=== PATIENT | female | born 1990 | race Caucasian/White ===

== ENCOUNTER → 2019-02-27 | Outpatient (CLI) | payer OTHER | LOC: LABWHC1 08:39 | PROVIDERS: ATTEND Obstetrics & Gynecology | DX: N92.6 Irregular menstruation, unspecified (principal) | CPT/HCPCS: 36415; 84702 ==

== ENCOUNTER → 2019-06-24 | Outpatient (CLI) | payer OTHER ==
[2019-06-24 15:32] LABS: HCT 36.1 % (34.0-46.0); HGB 12.4 gm/dL (11.4-16.0); MCH 28.3 pg (25.0-35.0); MCHC 34.3 g/dL (31.0-37.0); MCV 82.4 fL (80.0-100.0); Mean Platelet Volume 6.3; Platelet Count 305 k/uL (150-450); RBC 4.38 m/uL (3.80-5.40); RDW 13.7 % (11.5-15.5)
[2019-06-25 01:41] LABS: African American GFR (CKD) 137.6 (60.0-200.0)
[2019-06-25 02:20] LABS: Hepatitis B Surface Antigen Non-Reactive (Non-Reactive)
== END | disposition home or self-care (01) ==
LOC: LABWHC1 14:52
PROVIDERS: ATTEND Obstetrics & Gynecology
DX: Z34.81 Encounter for supervision of other normal pregnancy, first trimester (principal)
CPT/HCPCS: 36415; 82565; 82947; 85027; 86762; 86780; 86850; 86870; 86880; 86886; 86900; 86901; 87340

== ENCOUNTER → 2019-07-03 | Outpatient (CLI) | payer OTHER ==
--- NOTE | 2019-07-03 16:52 | US ---
EXAMINATION TYPE: Transabdominal DATE OF EXAM: 07/03/2019 4:32 PM COMPARISON: NONE CLINICAL HISTORY: Z36 CONFIRM DATES. Confirm Dates EXAM PERFORMED: Transabdominal (TA) EXAM MEASUREMENTS: GESTATIONAL AGE / DATING Physician Established: Not yet established Dates by LMP: (10 weeks/4 days) EDC: 01/25/2020 Dates by First Scan: No prior Dates by Current Scan for: (9 weeks/1 days) EDC: 02/04/2020 MATERNAL ANATOMY Uterus: 11.5 x 6.9 x 8.0 cm Right Ovary: 3.0 x 1.7 x 1.8 cm Left Ovary: 2.6 x 1.6 x 2.4 cm Post CDS / Adnexa: wnl Presence of free fluid: No Presence of subchorionic bleed: Yes, sup to gestational sac= 1.8 x 1.2 x 1.8 cm GESTATION / SURVEY CRL: 2.4 cm (9 weeks/1 days) MSD: wnl Yolk Sac (normal less than 6mm): 4mm Heart Rate: 174 bpm Rhythm: Normal IUP: Viable IUP Date of LMP: 04/20/2019 Single live intrauterine gestation is seen as gestational sac, yolk sac, pole are present. No f ree fluid in pelvic cul-de-sac. Superior to gestational sac there is is small fluid collection measur ing 1.8 cm long axis could reflect implantation bleed. Both ovaries are seen. No concerning extra ovarian adnexal mass. IMPRESSION: Single live intrauterine gestation is confirmed, mean crown-rump length is 2.4 cm corresp onding to 9 week 1 day old fetus.
== END | disposition home or self-care (01) ==
LOC: RADUSWWP 16:18
PROVIDERS: ATTEND Obstetrics & Gynecology
DX: Z36.89 Encounter for other specified antenatal screening (principal); Z3A.09 9 weeks gestation of pregnancy
CPT/HCPCS: 76801

== ENCOUNTER 2020-01-27 12:37 | Outpatient (CLI) | payer OTHER ==
[2020-01-27 14:00] LABS: Appearance,Urine Clear (Clear); Bacteria,Urine Rare /hpf; Bilirubin,Urine Negative (Negative); Blood,Urine Negative (Negative); Color,Urine Light Yellow; Glucose,Urine (UA) Negative (Negative); Ketones,Urine Negative (Negative); Leukocyte Esterase,Urine Moderate (Negative); Mucus,Urine Rare /hpf; Nitrite,Urine Negative (Negative); PH, Urine 7.5 (5.0-8.0); Protein,Urine Negative (Negative); RBC,Urine 1 /hpf (0-5); Specific Gravity,Urine 1.009 (1.001-1.035); Squamous Epithelial Cell,Urine 2 /hpf (0-4); Urobilinogen,Urine <2.0 mg/dL (<2.0); WBC,Urine 8 /hpf (0-5)
[2020-01-27 14:06] LABS: Basophils % (A) 0 %; Eosinophils # (A) 0.1 k/uL (0-0.7); Eosinophils % (A) 1 %; HCT 33.3 % (34.0-46.0); HGB 10.8 gm/dL (11.4-16.0); Hypochromasia Slight; Lymphocytes # (A) 1.9 k/uL (1.0-4.8); Lymphocytes % (A) 21 %; MCHC 32.4 g/dL (31.0-37.0); MCV 86.4 fL (80.0-100.0); Mean Platelet Volume 7.3; Monocytes # (A) 0.3 k/uL (0-1.0); Monocytes % (A) 4 %; Neutrophils # (A) 6.5 k/uL (1.3-7.7); Neutrophils % (A) 73 %; Platelet Count 340 k/uL (150-450); RBC 3.85 m/uL (3.80-5.40); RDW 14.8 % (11.5-15.5); WBC 8.9 k/uL (3.8-10.6)
[2020-01-27 14:08] LABS: ALT 8 U/L (4-34); AST 17 U/L (14-36); African American GFR (CKD) >90 (>60 ml/min/1.73 sqM); Blood Urea Nitrogen 7 mg/dL (7-17); LDH 343 U/L (313-618); Non-African American GFR(CKD) >90 (>60 ml/min/1.73 sqM); Uric Acid 4.3 mg/dL (3.7-7.4)
[2020-01-27 14:12] LABS: Protein/Creatinine Ratio,Urine 0.285
[2020-01-27 15:02] VITALS: BP 142/88; PULSE 87; RESP 16
--- NOTE | 2020-01-30 09:05 | P.MSEPDOC ---
Presenting Problems - Arrival Data Date of Arrival on Unit: 01/27/20 Time of Arrival on Unit: 12:37 Mode of Transport: Ambulatory - Complaint OB-Reason for Admission/Chief Complaint: PIH Comment: pt was sent over by Dr. Gibson for high BP and PIH work up Medical History - Information : 3 Para: 2 Term: 2 : 0 Abortions: Spontaneous or Elective: 0 Number of Living Children: 2 - Gestational Age Gestational Age by NITESH (wks/days): 38 Weeks and 6 Days Review of Systems - Review of Systems Constitutional: No problems Breast: No problems ENT: No problems Cardiovascular: No problems Respiratory: No problems Gastrointestinal: No problems Genitourinary: No problems Musculoskeletal: No problems Neurological: No problems Skin: No problems Vital Signs - Pulse Right Brachial Pulse Rate: 87 Pulse Assessment Method: Automatic Cuff - Respirations Respiratory Rate: 16 Oxygen Delivery Method: Room Air - Blood Pressure Right Arm Blood Pressure: 142/88 Blood Pressure Mean: 106 Blood Pressure Source: Automatic Cuff Medical Screen Scoring (Pre) - Cervical Exam Dilation: Exam Deferred Effacement: Exam Deferred - Uterine Contractions Frequency: N/A Duration: N/A Intensity: N/A - Maternal Vital Signs Maternal Temperature: N/A Maternal Blood Pressure: Systolic >139 = 2 Signs of Preeclampsia: Headache = 1 Maternal Respirations: N/A - Maternal Trauma Maternal Trauma: N/A - Assessment - Baby A Baseline FHR: 130 Heart Rate - NICHD Category: Category I (Normal) = 0 NST: Reactive Position: N/A Station: N/A - Total Score - Baby A Total Score - Baby A: 3 - Total Score - Baby B Total Score - Baby B: 3 - Total Score - Baby C Total Score - Baby C: 3 - Level of Risk - Baby A Level of Risk - Baby A: Low (0-5) - Level of Risk - Baby B Level of Risk - Baby B: Low (0-5) - Level of Risk - Baby C Level of Risk - Baby C: Low (0-5) Physician Notification (Pre) - Physician Notified Physician Notified Date: 01/27/20 Physician Notified Time: 14:34 New Order Received: Yes - Notification Comment Comment: pt discharged home and to return tomorrow for IOL Disposition - Disposition OB Disposition: Discharge to home Discharge Date: 01/27/20 Discharge Time: 14:38 I agree with the RN Medical Screening Exam: Yes Risk & Benefit of care provided described in d/c instruction: Yes Diagnosis: GESTATIONAL HTN W/O SIGNIFICANT PROTEINURIA, THIRD TRIMESTER
== END 2020-01-27 14:38 | disposition home or self-care (01) ==
LOC: FBPOP 12:37
PROVIDERS: ATTEND Obstetrics & Gynecology
DX: O13.3 Gestational [pregnancy-induced] hypertension without significant proteinuria, third trimester (principal); Z3A.38 38 weeks gestation of pregnancy
CPT/HCPCS: 59025; 81001; 82565; 82570; 83615; 84156; 84450; 84460; 84520; 84550; 85025; 99215

== ENCOUNTER 2020-01-28 06:15 | Inpatient (IN) | payer OTHER ==
[2020-01-28] MEDS ORDERED: OXYTOCIN 30 UNITS/500 ML NS 30 UNIT in SALINE 1 500ML.BAG IV SCH (06:30)
[2020-01-28] MEDS ORDERED: LIDOCAINE 0.5% (PF) 5 MG/ML (50 ML SDV) SQ PRN (06:30)
[2020-01-28] MEDS ORDERED: CARBOPROST TROMETHAMINE 250 MCG/ML 1 ML AMP IM PRN (06:30)
[2020-01-28] MEDS ORDERED: TERBUTALINE 1 MG/ML VIAL SQ PRN (06:30)
[2020-01-28] MEDS ORDERED: METHYLERGONOVINE 0.2 MG/ML 1 ML AMP IM PRN (06:30)
[2020-01-28] MEDS ORDERED: OXYTOCIN 10 UNIT/ML 1 ML VIAL IM PRN (06:30)
[2020-01-28 06:56] LABS: Basophils % (A) 0 %; Eosinophils # (A) 0.1 k/uL (0-0.7); Eosinophils % (A) 1 %; Lymphocytes # (A) 2.2 k/uL (1.0-4.8); Lymphocytes % (A) 26 %; MCH 28.7 pg (25.0-35.0); MCHC 33.4 g/dL (31.0-37.0); MCV 85.9 fL (80.0-100.0); Mean Platelet Volume 7.6; Monocytes # (A) 0.4 k/uL (0-1.0); Monocytes % (A) 5 %; Neutrophils # (A) 5.6 k/uL (1.3-7.7); Neutrophils % (A) 65 %; Platelet Count 328 k/uL (150-450); RBC 3.85 m/uL (3.80-5.40); WBC 8.5 k/uL (3.8-10.6)
[2020-01-28] MEDS: LACTATED RINGERS 1,000 ML IV SCH ×2 (06:58→11:41)
--- NOTE | 2020-01-28 07:30 | P.HPOB ---
History of Present Illness H&P Date: 01/28/20 Chief Complaint: induction of labor 29-year-old presents at 39 weeks for induction of labor. Her cervix is 2 cm dilated, 60% effaced, and -2 station. She is not stephanie. heart tones 130 with moderate variability and reactive. When she came to my office ye sterday her blood pressures were elevated up to 150/90. Preeclamptic labs were normal and she does not have any symptoms. Review of Systems All systems: negative Constitutional: Denies chills, Denies fever Eyes: denies blurred vision, denies pain Ears, nose, mouth and throat: Denies headache, Denies sore throat Cardiovascular: Denies chest pain, Denies shortness of breath Respiratory: Denies cough Gastrointestinal: Denies abdominal pain, Denies diarrhea, Denies nausea, Denies vomiting Genitourinary: Denies dysuria, Denies hematuria Musculoskeletal: Denies myalgias Integumentary: Denies pruritus, Denies rash Neurological: Denies numbness, Denies weakness Psychiatric: Denies anxiety, Denies depression Endocrine: Denies fatigue, Denies weight change Past Medical History Past Medical History: No Reported History Additional Past Medical History / Comment(s): Obstetric history: She's had 2 previous vaginal deliveries. This is her third . History of Any Multi-Drug Resistant Organisms: None Reported Past Surgical History: No Surgical Hx Reported Past Anesthesia/Blood Transfusion Reactions: No Reported Reaction Smoking Status: Never smoker - Past Family History Father Family Medical History: No Reported History Medications and Allergies Home Medications Medication Instructions Recorded Confirmed Type No Known Home Medications 01/28/20 01/28/20 History Allergies Allergy/AdvReac Type Severity Reaction Status Date / Time No Known Allergies Allergy Verified 01/28/20 06:28 Exam Osteopathic Statement: *. No significant issues noted on an osteopathic structural exam other than those noted in the History and Physical/Consult. Intake and Output 01/27/20 01/28/20 01/28/20 22:59 06:59 14:59 Other: Weight 106.594 kg Heart: Regular rate and rhythm Lungs: Clear to auscultation bilaterally Abdomen: Soft, nontender Extremities: Negative Homans sign Results Result Diagrams: 01/28/20 06:45 Abnormal Lab Results - Last 24 Hours (Table) 01/28/20 Range/Units 06:45 Hgb 11.0 L (11.4-16.0) gm/dL Hct 33.0 L (34.0-46.0) % Assessment and Plan (1) Normal labor Current Visit: Yes Status: Acute Code(s): O80 - ENCOUNTER FOR FULL-TERM UNCOMPLICATED DELIVERY; Z37.9 - OUTCOME OF DELIVERY, UNSPECIFIED SNOMED Code(s): 38454480 (2) Gestational hypertension Current Visit: Yes Status: Acute Code(s): O13.9 - GESTATIONAL HTN W/O SIGNIFICANT PROTEINURIA, UNSP TRIMESTER SNOMED Code(s): 983352034 Plan: 1. Amniotomy and Pitocin for induction of labor 2. Anticipate normal vaginal delivery
[2020-01-28 08:06] LABS: INR 0.9 (<1.2); Partial Thromboplastin Time 22.2 sec (22.0-30.0); Prothrombin Time 9.4 sec (9.0-12.0)
[2020-01-28] MEDS ORDERED: ROPIVACAINE 100 MG, fentaNYL (PF) 200 MCG in SODIUM CHLORIDE 0.9% 76 ML EPIDURAL ONE (11:59)
[2020-01-28] MEDS ORDERED: HYDROCORTISONE 2.5% RECTAL CREAM 30 GM TUBE RECTAL PRN (19:45)
[2020-01-28] MEDS ORDERED: ZOLPIDEM 5 MG TAB PO PRN (19:45)
[2020-01-28] MEDS ORDERED: SIMETHICONE 80 MG CHEWABLE PO PRN (19:45)
[2020-01-28] MEDS ORDERED: diphenhydrAMINE 50 MG/ML 1 ML VIAL IVP PRN ×2 (19:45)
[2020-01-28] MEDS ORDERED: diphenhydrAMINE 25 MG CAP PO PRN (19:45)
[2020-01-28] MEDS ORDERED: diphenhydrAMINE 50 MG CAP PO PRN (19:45)
[2020-01-28] MEDS ORDERED: WITCH HAZEL 1 EACH MED..PAD TOPICAL PRN (19:45)
[2020-01-28] MEDS ORDERED: OXYTOCIN 20 UNITS/1000 ML NS 1,000 ML IV SCH (19:45)
[2020-01-28] MEDS ORDERED: BENZOCAINE/MENTHOL SPRAY 1 GM/SPRAY AEROSOL TOPICAL PRN (19:45)
[2020-01-28] MEDS ORDERED: LANOLIN CREAM 5 GM TUBE TOPICAL PRN (19:45)
[2020-01-28] MEDS: SENNOSIDES-DOCUSATE SODIUM 1 EACH TAB PO SCH ×2 (20:26→21:22)
[2020-01-28] MEDS: IBUPROFEN 600 MG TAB PO PRN (21:23)
[2020-01-29] MEDS: ACETAMINOPHEN TAB 325 MG TAB PO PRN ×2 (00:07→08:08)
[2020-01-29] MEDS: IBUPROFEN 600 MG TAB PO PRN ×2 (04:48→11:01)
[2020-01-29 06:19] LABS: Basophils % (A) 0 %; Eosinophils # (A) 0.2 k/uL (0-0.7); Eosinophils % (A) 2 %; HCT 28.7 % (34.0-46.0); HGB 9.7 gm/dL (11.4-16.0); Lymphocytes # (A) 2.3 k/uL (1.0-4.8); Lymphocytes % (A) 24 %; MCH 28.8 pg (25.0-35.0); MCHC 33.8 g/dL (31.0-37.0); MCV 85.3 fL (80.0-100.0); Mean Platelet Volume 7.2; Monocytes # (A) 0.5 k/uL (0-1.0); Monocytes % (A) 5 %; Neutrophils # (A) 6.8 k/uL (1.3-7.7); Neutrophils % (A) 68 %; Platelet Count 282 k/uL (150-450); RBC 3.36 m/uL (3.80-5.40); RDW 15.1 % (11.5-15.5); WBC 9.9 k/uL (3.8-10.6)
--- NOTE | 2020-01-29 06:58 | P.PROBDLV ---
Vaginal Delivery Note - . Vaginal Delivery Note: 29-year-old presents at 39 weeks for induction of labor. Her cervix is 2 cm dilated, 60% effaced, and -2 station. She is not stephanie. heart tones 130 with moderate variability and reactive. When she came to my office yesterday her blood pressures were elevated up to 150/90. Preeclamptic labs were normal and she does not have any symptoms. Pitocin was started. Amniotomy performed at 7:04 AM thin meconium fluid noted. She progressed about 3-4 cm and did get an epidural. Her cervix was completely dilated at 1309. She pushed, delivered a viable female over intact perineum under epidural anesthesia at 1315. Head delivered OA, anterior shoulder delivered gentle downward guidance follow-up with posterior shoulder and rest of body. Nose and mouth bulb suctioned, cord clamped and cut, infant placed mother's abdomen. Apgars 9, 9, weight 7 lbs. 14 oz. Placenta delivered spontaneously, intact with three- vessel cord at 1317. Vagina, cervix, and perineum were inspected. First-degree midline laceration was repaired with 3-0 Vicryl. Estimated blood loss 200 mL. Mother and baby in stable condition.
--- NOTE | 2020-01-29 07:01 | P.DS ---
Providers Date of admission: 01/28/20 06:17 Expected date of discharge: 01/29/20 Attending physician: Hanane Gibson Primary care physician: Stated None - Discharge Diagnosis(es) (1) Normal labor Current Visit: Yes Status: Resolved (2) Gestational hypertension Current Visit: Yes Status: Acute (3) Normal vaginal delivery Current Visit: Yes Status: Acute Hospital Course: Patient presented at 39 weeks for induction of labor due to gestational hypertension. She underwent a normal vaginal delivery. course uncomplicated and blood pressures retrench normal. She'll be discharged home day #1 in stable condition to follow-up with me in 6 weeks. Signs and symptoms of preeclampsia were again reviewed with the patient she was told to call with any symptoms. Plan - Discharge Summary New Discharge Prescriptions: New Ibuprofen [Motrin] 600 mg PO Q6HR PRN #30 tab PRN Reason: Mild Pain Or Fever >= 100.5 Discharge Medication List Ibuprofen [Motrin] 600 mg PO Q6HR PRN #30 tab 01/29/20 [Rx] Follow up Appointment(s)/Referral(s): Hanane Gibson DO [Doctor of Osteopathic Medicine] - 6 Weeks Discharge Disposition: HOME SELF-CARE
[2020-01-29] MEDS: SENNOSIDES-DOCUSATE SODIUM 1 EACH TAB PO SCH (08:10)
[2020-01-29 08:11] VITALS: BP 127/67; PULSE 85; RESP 20; TEMP 97.9
== END 2020-01-29 14:35 | disposition home or self-care (01) | DRG 807 ==
LOC: 4FBP 06:17
PROVIDERS: ADMIT Obstetrics & Gynecology; ATTEND Obstetrics & Gynecology
PROC: 10E0XZZ Delivery of Products of Conception, External Approach (ICD-10-PCS; principal; 2020-01-28)
PROC: 0HQ9XZZ Repair Perineum Skin, External Approach (ICD-10-PCS; 2020-01-28)
PROC: 10907ZC Drainage of Amniotic Fluid, Therapeutic from Products of Conception, Via Natural or Artificial Opening (ICD-10-PCS; 2020-01-28)
PROC: 3E033VJ Introduction of Other Hormone into Peripheral Vein, Percutaneous Approach (ICD-10-PCS; 2020-01-28)
PROC: 3E0R3BZ Introduction of Anesthetic Agent into Spinal Canal, Percutaneous Approach (ICD-10-PCS; 2020-01-28)
DX: O13.4 Gestational [pregnancy-induced] hypertension without significant proteinuria, complicating childbirth (principal); Z37.0 Single live birth; O70.0 First degree perineal laceration during delivery; O77.0 Labor and delivery complicated by meconium in amniotic fluid; Z3A.39 39 weeks gestation of pregnancy; Z86.59 Personal history of other mental and behavioral disorders
CPT/HCPCS: 85025; 85610; 85730; 86850; 86900; 86901

== ENCOUNTER → 2023-11-22 | Outpatient (CLI) | payer BC ==
--- NOTE | 2023-11-22 08:45 | MM ---
Reason for Exam: Clinical finding. Baseline mammogram. Indicated Problems: Lump or thickening of the left side for 3 Month(s). Patient History: Menarche at age 14. First Full-Term at age 23. Patient has history of breast feeding. Patient used Hormonal Contraceptives for 5 years. Last menstrual period: 11/19/2023 Prior Study Comparison: Patient's first Mammogram. Tissue Density: There are scattered fibroglandular densities. Findings: Analyzed By CAD. The pattern is symmetrical. Marker is placed on the approximate 6:00 middle position left breast location the patient had a palpable abnormality for approximately 3 months. Patient does not feel this today. There may be a subtle 0.3 cm slightly hyperdense area near the marker on the mediolateral oblique view. Small nodularity may be slightly medial to the marker on the craniocaudal view. Ultrasound of the lower breast is recommended with attention to the palpable marker region. Overall Assessment: Incomplete: need additional imaging evaluation, BI-RAD 0 Management: Diagnostic Breast Ultrasound of the left breast. A negative mammogram report should not preclude additional follow up of suspicious palpable abnormalities. Patient should continue monthly self breast exam. A clinical breast exam by your physician is recommended on an annual basis and results should be correlated with mammographic findings. Electronically signed and approved by: Michele Guaman D.O. Radiologis
--- NOTE | 2023-11-22 09:20 | USB ---
Reason for Exam: Additional evaluation requested from abnormal screening. Patient History: Menarche at age 14. First Full-Term at age 23. Patient has history of breast feeding. Patient used Hormonal Contraceptives for 5 years. Technique: Method: Targeted. Doppler: Color. Patient Position: RPO. Prior Study Comparison: No prior studies available for comparison. Findings: The lower section of the breast of the left breast, the axilla of the left breast and the retroareolar of the left breast were scanned. Within the left breast 3:00 position 4 cm from nipple is a 0.3 cm anechoic structure. Posterior wall enhancement is evident. Connolly appear smooth. This appears to be a very small simple cyst. Clinical management of patient's palpable region. If this palpable region should recur, consider ultrasound with possible left breast diagnostic mammography. Overall Assessment: Benign, BI-RAD 2 Management: Screening Mammogram of both breasts at age 37. A clinical breast exam by your physician is recommended on an annual basis and results should be correlated with mammographic findings. This exam should not preclude additional follow-up of suspicious palpable abnormalities. Results were given to the patient verbally at the time of exam. Electronically signed and approved by: Michele Guaman D.O. Radiologis
== END | disposition home or self-care (01) ==
LOC: RADMAMWWP 08:07
PROVIDERS: ATTEND Family Medicine
DX: N63.23 Unspecified lump in the left breast, lower outer quadrant (principal); N63.24 Unspecified lump in the left breast, lower inner quadrant; R92.322 Mammographic fibroglandular density, left breast
CPT/HCPCS: 77062; 77066